=== PATIENT | female | born 1990 | race Two or more races ===

== ENCOUNTER 2018-05-31 18:21 | Emergency (ER) | payer MEDICAID ==
[~2018-05-31] VITALS: Ht 149.9 cm; Wt 56.7 kg
[2018-05-31 19:05] LABS: Urine Bacteria NONE SEEN /hpf (None Seen); Urine Blood Negative /uL (Negative); Urine Specific Gravity 1.001 (1.001-1.035); Urine WBC <1 /hpf (0 - 5)
[2018-05-31 23:48] VITALS: BP 117/80
[2018-06-01] MEDS: ONDANSETRON ODT 4 MG TAB PO ONE
[2018-06-01] MEDS: LACTULOSE 20Gm/30ML SOLN PO ONE
== END 2018-06-01 01:10 | disposition home or self-care (01) ==
LOC: ER 18:28
DX: K59.00 Constipation, unspecified (principal)
CPT/HCPCS: 74176; 81001; 81025; 99284; Q0162

== ENCOUNTER 2018-06-01 18:48 | Emergency (ER) | payer MEDICAID ==
[~2018-06-01] VITALS: Ht 167.6 cm; Wt 61.2 kg
[2018-06-01 18:59] VITALS: BP 92/56
[2018-06-01 20:12] LABS: Basophils # (auto) 0.1 uL; Basophils % (auto) 0.7 % (0.0-2.0); Eosinophils # (auto) 0.1 uL; Eosinophils % (auto) 1.8 % (0.0-7.0); Hematocrit 35.6 % (36.0-46.0); Hemoglobin 11.7 g/dL (12.2-16.2); Lymphocytes # (auto) 0.8 uL; Lymphocytes % (auto) 9.9 % (10.0-50.0); Mean Corpuscular Hgb Conc. 32.8 g/dL (32.0-36.0); Mean Corpuscular Volume 85.6 fL (80.0-100.0); Monocytes # (auto) 0.6 uL; Monocytes % (auto) 6.8 % (0.0-12.0); Neutrophils # (auto) 6.7 uL; Neutrophils % (auto) 80.8 % (37.0-80.0); Nucleated Red Blood Cells % 0.1 %; Platelet Count (auto) 159 10^3/uL (140-450); Red Blood Cells 4.16 10^6/uL (4.0-5.20); Red Cell Distribution Width 14.1 % (11.8-14.3); White Blood Cell 8.2 10^3/uL (4.4-10.8)
[2018-06-01 20:23] LABS: Albumin 3.8 g/dL (3.4-5.0); Calcium 8.6 mg/dL (8.5-10.1); Potassium 4.2 mmol/L (3.5-5.1)
[2018-06-01 20:27] LABS: BUN/Creatinine Ratio 16.5; Bilirubin, Total 0.3 mg/dL (0.2-1.0)
== END 2018-06-01 23:06 | disposition left against medical advice (07) ==
LOC: EDBD 18:48 → ER 18:56
DX: K59.00 Constipation, unspecified (principal); Z53.21 Procedure and treatment not carried out due to patient leaving prior to being seen by health care provider
CPT/HCPCS: 36415; 80053; 85025

== ENCOUNTER → 2019-05-07 | Emergency (ER) | payer MEDICAID ==
[~2019-05-07] VITALS: Ht 144.8 cm; Wt 54.4 kg
[~2019-05-07] MED LIST: LORazepam 0.5 MG TAB PO ONE; LORazepam 0.5 MG TAB PO PRN; QUEtiapine FUMARATE 100 MG TAB PO SCH; cefTRIAXone W LIDOCAINE 1 GM IM IM ONE
[2019-05-07 12:17] LABS: Basophils # (auto) 0 10 ^3/uL (0-0.2); Basophils % (auto) 0.5 % (0.0-2.0); Eosinophils # (auto) 0.1 10 ^3/uL (0-0.8); Eosinophils % (auto) 1.6 % (0.0-7.0); Hematocrit 41.2 % (36.0-46.0); Hemoglobin 13.3 g/dL (12.2-16.2); Lymphocytes # (auto) 1.5 10 ^3/uL (0.4-5.4); Lymphocytes % (auto) 31.2 % (10.0-50.0); Mean Corpuscular Hemoglobin 28.1 pg (28.0-32.0); Mean Corpuscular Hgb Conc. 32.4 g/dL (32.0-36.0); Mean Corpuscular Volume 86.7 fL (80.0-100.0); Monocytes # (auto) 0.3 10 ^3/uL (0-1.3); Monocytes % (auto) 5.4 % (0.0-12.0); Neutrophils # (auto) 2.9 10 ^3/uL (1.6-8.6); Neutrophils % (auto) 61.3 % (37.0-80.0); Nucleated Red Blood Cells % 0.1 %; Platelet Count (auto) 168 10^3/uL (140-450); Red Blood Cells 4.75 10^6/uL (4.0-5.20); Red Cell Distribution Width 13.9 % (11.8-14.3); White Blood Cell 4.7 10^3/uL (4.4-10.8)
[2019-05-07 12:30] LABS: Urine Bacteria FEW /hpf (None Seen); Urine Blood TRACE /uL (Negative); Urine Specific Gravity 1.008 (1.001-1.035); Urine WBC 1 /hpf (0 - 5)
[2019-05-07 12:35] LABS: Urine Pregnacy Test Negative (Negative)
[2019-05-07 12:37] LABS: Albumin 4.4 g/dL (3.4-5.0); Potassium 3.4 mmol/L (3.5-5.1)
[2019-05-07 12:39] LABS: BUN/Creatinine Ratio 8.2; Salicylate < 1.7 mg/dL (2.8-20.0)
[2019-05-07 12:42] LABS: Bilirubin, Total 0.4 mg/dL (0.2-1.0); Total Protein 8.2 g/dL (6.4-8.2)
[2019-05-07 12:45] LABS: Alcohol, Urine < 3.0 mg/dL (0-5); Amphetamine Screen, Urine NEGATIVE (NEGATIVE); Barbiturate Scree,Urine NEGATIVE (NEGATIVE); Benzodiazephine Screen, Urine NEGATIVE (NEGATIVE); Cannabinoid Screen, Urine POSITIVE (NEGATIVE); Cocaine Screen, Urine NEGATIVE (NEGATIVE); Opiate Scree,Urine NEGATIVE (NEGATIVE); Phencyclidine Screen, Urine NEGATIVE (NEGATIVE)
[2019-05-07 12:45] LABS: Acetaminophen < 2.0 ug/mL (10-30)
[2019-05-08 15:24] VITALS: BP 122/85
== END | disposition home or self-care (01) ==
LOC: ER 11:42
DX: F29 Unspecified psychosis not due to a substance or known physiological condition (principal); F20.9 Schizophrenia, unspecified
CPT/HCPCS: 36415; 80053; 80307; 80329; 81001; 81025; 85025; 96372; 99285; J0696; 93005